=== PATIENT | male | born 1965 | race Caucasian/White ===

== ENCOUNTER 2018-04-26 21:11 | Emergency (ER) | payer OTHER ==
[~2018-04-26] VITALS: Ht 180.3 cm; Wt 95.3 kg
--- NOTE | 2018-04-26 21:32 | NUR ---
pt aaox4, ambulatory, from home c/o itchiness, matilde armpit redness and blisteringfor 2 days, denies cp,sob,tongue swelling. Breathing even unlabored, abd soft nondistended with+BS, denies other symptoms.Bed in low position,locked, HOB up,SR up X2 for safety, CB within reach
--- NOTE | 2018-04-26 21:42 | NUR ---
pt in no distress, advised to f/u with pmd or return to ER for worsening of symptoms,verbalizes understanding
== END 2018-04-26 21:44 | disposition home or self-care (01) ==
LOC: ER 21:13
DX: L74.0 Miliaria rubra (principal)
CPT/HCPCS: 99281; A4663

== ENCOUNTER 2018-09-18 11:34 | Inpatient (IN) | payer MEDICAID, OTHER ==
[~2018-09-18] VITALS: Ht 180.3 cm; Wt 95.3 kg
--- NOTE | 2018-09-18 11:45 | NUR ---
PT IS IN ROOM #1B. DR SAMPSON EVALUATED THE PT.
[2018-09-18] MEDS ORDERED: IBUP-1953 PO (11:49)
[2018-09-18] MEDS ORDERED: DIPH25CA83 PO (11:50)
[2018-09-18 12:11] LABS: BASOPHILS % (AUTO) 0.8 % (0.0-2.0); EOSINOPHILS # (AUTO) 0.1 K/uL (0.0-0.7); EOSINOPHILS % (AUTO) 1.9 % (0.0-7.0); HEMOGLOBIN 15.3 g/dL (12.5-16.3); LYMPHOCYTES # (AUTO) 2.1 K/uL (20.0-40.0); LYMPHOCYTES % (AUTO) 36.3 % (20.5-51.5); MEAN CORPUSCULAR HEMOGLOBIN 32.7 uug (23.8-33.4); MEAN CORPUSCULAR HGB CONC 34 g/dL (32.5-36.3); MEAN CORPUSCULAR VOLUME 95.9 fL (73.0-96.2); MONOCYTES # (AUTO) 0.6 K/uL (2.0-10.0); MONOCYTES % (AUTO) 9.7 % (0.0-11.0); NEUTROPHILS # (AUTO) 2.9 K/uL (1.8-8.9); NEUTROPHILS % (AUTO) 51.3 % (38.5-71.5); PLATELET COUNT (AUTO) 251 K/uL (152-348); RED BLOOD CELL COUNT(AUTO) 4.69 MIL/uL (4.06-5.63); WHITE BLOOD COUNT (AUTO) 5.7 K/uL (3.6-10.2)
[2018-09-18 12:16] LABS: POTASSIUM 3.5 mmol/L (3.5-5.1)
[2018-09-18 12:28] LABS: BILIRUBIN,DIRECT 0.1 mg/dL (0.0-0.2); BILIRUBIN,TOTAL 0.4 mg/dL (0.2-1.0); TOTAL PROTEIN, SERUM 7.2 g/dL (6.4-8.2)
--- NOTE | 2018-09-18 13:20 | NUR ---
TEXTED DR. PEARSON FOR MRI APPROVAL.
--- NOTE | 2018-09-18 13:35 | NUR ---
TABLETIME FOR MRI PATIENTS IS 5PM
--- NOTE | 2018-09-18 15:41 | NUR ---
Brittanie hughes in ED - 09/18/18 at 1543 by FATEMEH PT WAS D/C'd FROM [facility] BY DR SAMPSON. D/C INSTRUCTIONS GIVEN TO THE PT. PT WAS AD[facility]ITED [facility].
--- NOTE | 2018-09-18 15:43 | NUR ---
REPORT WAS GIVEN TO MICA MACHINE OPERATOR. PT WAS TRANSFERED TO ROOM #223.
[2018-09-18] MEDS ORDERED: ASPIRIN 325 MG TABLET PO ONE (15:45)
[2018-09-18] MEDS ORDERED: ASPIRIN 325 MG TABLET ONE (16:13)
[2018-09-18 17:00] VITALS: BP 120/65
[2018-09-18] MEDS ORDERED: hydrALAZINE HCL 20 MG/1 ML VIAL IV PRN (17:00)
--- NOTE | 2018-09-18 17:25 | NUR ---
53 YEAR OLD MALE RECEIVED FROM ER VIA GURNEY FOR TIA IN STABLE CONDITION.V/S ARE STABLE,CALL LIGHT WITH IN REACH
[2018-09-18] MEDS ORDERED: IV NORMAL SALINE 250 ML IV ONE (17:30)
[2018-09-18] MEDS ORDERED: SWABABLE VALVE TRANSFER SET EA MC ONE (17:30)
[2018-09-18] MEDS ORDERED: NORMAL SALINE FLUSH 10 ML DISP.SYRIN ONE (17:30)
[2018-09-18] MEDS ORDERED: IOHEXOL 350 100 ML INFUS..BTL ONE (17:30)
[2018-09-18] MEDS ORDERED: BLOOD SUGAR DIAGNOSTIC 1 EACH STRIP VI SCH (18:00)
[2018-09-18 18:37] LABS: BASOPHILS % (AUTO) 0.6 % (0.0-2.0); EOSINOPHILS # (AUTO) 0.1 K/uL (0.0-0.7); HEMATOCRIT 43.5 % (36.7-47.1); HEMOGLOBIN 14.7 g/dL (12.5-16.3); LYMPHOCYTES % (AUTO) 32.9 % (20.5-51.5); MEAN CORPUSCULAR HEMOGLOBIN 32.3 uug (23.8-33.4); MEAN CORPUSCULAR HGB CONC 34 g/dL (32.5-36.3); MEAN CORPUSCULAR VOLUME 95.9 fL (73.0-96.2); MONOCYTES # (AUTO) 0.6 K/uL (2.0-10.0); MONOCYTES % (AUTO) 10.5 % (0.0-11.0); NEUTROPHILS # (AUTO) 3.3 K/uL (1.8-8.9); PLATELET COUNT (AUTO) 227 K/uL (152-348); RED BLOOD CELL COUNT(AUTO) 4.54 MIL/uL (4.06-5.63); WHITE BLOOD COUNT (AUTO) 6.1 K/uL (3.6-10.2)
[2018-09-18 18:58] LABS: BILIRUBIN,TOTAL 0.3 mg/dL (0.2-1.0); POTASSIUM 3.5 mmol/L (3.5-5.1); TOTAL PROTEIN, SERUM 6.6 g/dL (6.4-8.2)
--- NOTE | 2018-09-18 19:10 | NUR ---
RECEIVED PATIENT AWAKE ON BED, AAOX4, DENIES ANY CHEST PAIN OR SOB AT THIS TIME. ON TELE SINUS RHYTHM WITH HR OF 80. IV SITE ON RAC, PATENT AND INTACT. SAFETY MEASURES INITIATED, PT BELONGINGS AND CALL MONSON WITHIN REACH.
[2018-09-18 19:36] LABS: THYROID STIMULATING HORMONE 2.008 mIU/mL (0.358-3.740)
[2018-09-18 20:00] VITALS: BP 113/71
[2018-09-18] MEDS: ATORVASTATIN 40 MG TABLET PO SCH (20:50)
[2018-09-18] MEDS: BLOOD SUGAR DIAGNOSTIC 1 EACH STRIP VI SCH (20:55)
[2018-09-18] MEDS ORDERED: SIMVASTATIN 40 MG TABLET PO SCH (21:00)
[2018-09-19] VITALS: BP 111/68
[2018-09-19 01:39] LABS: *BILIRUBIN,URIN NEGATIVE (NEGATIVE); *BLOOD, URINE Trace-intact (NEGATIVE); *CLARITY,URINE CLEAR (CLEAR); *COLOR,URINE YELLOW (YELLOW); *KETONES,URINE NEGATIVE (NEGATIVE); *PROTEIN,URINE NEGATIVE (NEGATIVE); *UROBILINOGEN,URINE 0.2 E.U./dl (NORMAL); LEUKOCYTE ESTERASE ,URINE NEGATIVE (NEGATIVE); NITRITE, URINE POSITIVE (NEGATIVE); UGLUCOSE NEGATIVE (NEGATIVE)
[2018-09-19 01:44] LABS: *AMPHETAMINE, URINE NEGATIVE (NEGATIVE); *BARBITURATE, URINE NEGATIVE (NEGATIVE); *CANNABINOID, URINE NEGATIVE (NEGATIVE); *COCCAINE, URINE NEGATIVE (NEGATIVE); *OPIATE, URINE NEGATIVE (NEGATIVE); *PHENCYCLIDINE SCREEN,URINE NEGATIVE (NEGATIVE)
[2018-09-19 02:16] LABS: BACTERIA,URINE FEW /HPF (NONE SEEN); RBC,URINE 0-3 /HPF (0-3); SQUAMOUS EPITHELIAL CELL,UR FEW /HPF (NONE SEEN); WBC,URINE 0-3 /HPF (0-3)
[2018-09-19 04:00] VITALS: BP 108/62
[2018-09-19 05:33] LABS: BASOPHILS # (AUTO) 0.1 K/uL (0.0-8.0); BASOPHILS % (AUTO) 0.9 % (0.0-2.0); EOSINOPHILS # (AUTO) 0.2 K/uL (0.0-0.7); EOSINOPHILS % (AUTO) 2.6 % (0.0-7.0); HEMOGLOBIN 15.4 g/dL (12.5-16.3); LYMPHOCYTES # (AUTO) 2.1 K/uL (20.0-40.0); LYMPHOCYTES % (AUTO) 28.1 % (20.5-51.5); MEAN CORPUSCULAR HEMOGLOBIN 31.9 uug (23.8-33.4); MEAN CORPUSCULAR HGB CONC 34 g/dL (32.5-36.3); MEAN CORPUSCULAR VOLUME 93.5 fL (73.0-96.2); MONOCYTES # (AUTO) 0.7 K/uL (2.0-10.0); MONOCYTES % (AUTO) 9.1 % (0.0-11.0); NEUTROPHILS # (AUTO) 4.5 K/uL (1.8-8.9); NEUTROPHILS % (AUTO) 59.3 % (38.5-71.5); PLATELET COUNT (AUTO) 253 K/uL (152-348); RED BLOOD CELL COUNT(AUTO) 4.81 MIL/uL (4.06-5.63); WHITE BLOOD COUNT (AUTO) 7.7 K/uL (3.6-10.2)
[2018-09-19 05:43] LABS: POTASSIUM 3.8 mmol/L (3.5-5.1)
--- NOTE | 2018-09-19 06:17 | NUR ---
PATIENT SLEPT THROUGHOUT THE SHIFT, NO SIGNS OF DISCOMFORT AT THIS TIME. ON TELE SINUS RHYTHM WITH HR OF 72. IV SITE ON RAC, PATENT AND INTACT. KEPT PATIENT SAFE AND COMFORTABLE AT ALL TIMES, PLACED CALL MONSON WITHIN REACH.
[2018-09-19] MEDS: BLOOD SUGAR DIAGNOSTIC 1 EACH STRIP VI SCH (06:27)
[2018-09-19] MEDS: ASPIRIN 81 MG TAB.CHEW PO SCH (08:03)
[2018-09-19 11:25] VITALS: BP 103/58
[2018-09-19 15:11] VITALS: BP 115/67
[2018-09-19] MEDS ORDERED: IBUPROFEN 400 MG TABLET PO ONE (16:30)
--- NOTE | 2018-09-19 19:10 | NUR ---
RECEIVED PATIENT AWAKE ON BED, AAOX4, DENIES ANY DISCOMFORT AT THIS TIME. SAFETY MEASURE INITIATED, CALL MONSON WITHIN REACH.
[2018-09-19 20:00] VITALS: BP 112/68
[2018-09-19] MEDS: ATORVASTATIN 40 MG TABLET PO SCH (20:29)
--- NOTE | 2018-09-19 21:40 | NUR ---
PATIENT C/O OF SHARP PAIN ON R TEMPORAL AREA. PAIN SCALE OF 5/10. PHONE CALL MADE TO [facility] AND MADE AWARE OF PATIENT'S STATUS. ORDER RECEIVE IBUPROFEN 400MG PO ONCE. ORDERS READ BACK AND CARRIED OUT.
[2018-09-19] MEDS ORDERED: IBUPROFEN 400 MG TABLET PO PRN (22:00)
[2018-09-20 04:00] VITALS: BP 110/61
--- NOTE | 2018-09-20 07:23 | NUR ---
PATIENT SLEPT THROUGHOUT THE SHIFT, NO SIGNS OF ACUTE DISTRESS NOTED AT THIS TIME. IV SITE ON RAC, PATENT AND INTACT. ALL NEED ATTENDED AND MET. SAFE ENVIRONMENT MAINTAINED AT ALL TIMES, PLACED CALL MONSON WITHIN REACH.
[2018-09-20] MEDS: ASPIRIN 81 MG TAB.CHEW PO SCH (08:02)
[2018-09-20 11:03] VITALS: BP 106/58
--- NOTE | 2018-09-20 12:44 | NUR ---
d/c orders received noted and carried out,d/c heplock .d/c instruction amd education and stroke education given to the pt,pt said he will followup with his dr,pt left the facility via private car in stable condition
== END 2018-09-20 12:55 | disposition home or self-care (01) | DRG 45 ==
LOC: ER 11:36 → TELE 16:03 → MED 09-19 09:30
PROVIDERS: ADMIT Internal Medicine; ATTEND Internal Medicine
DX: I63.89 Other cerebral infarction (principal); H53.462 Homonymous bilateral field defects, left side; R40.2412 Glasgow coma scale score 13-15, at arrival to emergency department; R29.700 NIHSS score 0; E78.5 Hyperlipidemia, unspecified; Z91.14 Patient's other noncompliance with medication regimen; Z82.49 Family history of ischemic heart disease and other diseases of the circulatory system; R20.0 Anesthesia of skin; M48.02 Spinal stenosis, cervical region; H05.51 Retained (old) foreign body following penetrating wound of right orbit; Z18.10 Retained metal fragments, unspecified; R51 Headache
CPT/HCPCS: 36415; 70030-TC; 70450; 70496; 71045; 80307; 84443; 85025; 85651; 85730; 86592; 87806; 93005; 93307; 97165; A4663; G0378; J3490; J7050; Q9967

== ENCOUNTER 2019-10-29 13:02 | Emergency (ER) | payer MEDICAID ==
[~2019-10-29] VITALS: Ht 180.3 cm; Wt 95.3 kg
[~2019-10-29 13:02] MED LIST: DIPH25CA83 PO; IBUP-1953 PO
[2019-10-29] MEDS ORDERED: KETOROLAC TROMETHAMINE 15 MG INJ IVP ONE (13:30)
[2019-10-29] MEDS ORDERED: ONDANSETRON 4 MG/2 ML VIAL IV ONE (13:30)
[2019-10-29] MEDS ORDERED: IV NORMAL SALINE 1000 ML BAG IV ONE (13:30)
[2019-10-29] MEDS ORDERED: ONDANSETRON 4 MG/2 ML VIAL ONE (13:38)
[2019-10-29] MEDS ORDERED: KETOROLAC TROMETHAMINE 30 MG INJ ONE (13:38)
[2019-10-29 13:46] LABS: BASOPHILS # (AUTO) 0.1 K/uL (0.0-8.0); BASOPHILS % (AUTO) 0.7 % (0.0-2.0); EOSINOPHILS # (AUTO) 0.1 K/uL (0.0-0.7); EOSINOPHILS % (AUTO) 0.8 % (0.0-7.0); HEMATOCRIT 45.4 % (36.7-47.1); HEMOGLOBIN 15.1 g/dL (12.5-16.3); LYMPHOCYTES # (AUTO) 1.5 K/uL (20.0-40.0); MEAN CORPUSCULAR HGB CONC 33 g/dL (32.5-36.3); MEAN CORPUSCULAR VOLUME 96.3 fL (73.0-96.2); MONOCYTES % (AUTO) 13.8 % (0.0-11.0); NEUTROPHILS # (AUTO) 4.8 K/uL (1.8-8.9); NEUTROPHILS % (AUTO) 64.7 % (38.5-71.5); PLATELET COUNT (AUTO) 188 K/uL (152-348); RED BLOOD CELL COUNT(AUTO) 4.72 MIL/uL (4.06-5.63); WHITE BLOOD COUNT (AUTO) 7.4 K/uL (3.6-10.2)
[2019-10-29 14:16] LABS: BILIRUBIN,DIRECT 0.1 mg/dL (0.0-0.2); BILIRUBIN,TOTAL 0.4 mg/dL (0.2-1.0); POTASSIUM 3.6 mmol/L (3.5-5.1); TOTAL PROTEIN, SERUM 7.4 g/dL (6.4-8.2)
[2019-10-29 15:09] VITALS: BP 134/81
== END 2019-10-29 15:11 | disposition home or self-care (01) ==
LOC: ER 13:04
DX: B34.9 Viral infection, unspecified (principal); R19.7 Diarrhea, unspecified; Z79.1 Long term (current) use of non-steroidal anti-inflammatories (NSAID); Z79.899 Other long term (current) drug therapy
CPT/HCPCS: 36415; 80048; 80076; 83690; 85025; 96361; 96374; 96375; 99283; J1885; J2405; A4663; J7030

== ENCOUNTER 2019-12-17 14:48 | Emergency (ER) | payer MEDICAID ==
[~2019-12-17] VITALS: Ht 180.3 cm; Wt 113.4 kg
--- NOTE | 2019-12-17 15:45 | NUR ---
Patient is resting comfortably on gurney, NAD, respiration:easy, calm, for results & disposition.
--- NOTE | 2019-12-17 16:09 | NUR ---
Patient discharged to home in stable condition with steady gait. Written and verbal after care instructions given to patient in Khmer by MD & HEATHER Hewitt, our clinical nurse educator. Patient verbalized understanding & compliance of instructions.
== END 2019-12-17 16:15 | disposition home or self-care (01) ==
LOC: ER 14:48
DX: J20.9 Acute bronchitis, unspecified (principal); Z60.2 Problems related to living alone
CPT/HCPCS: 36415; 71045; 86403; 87070; 87400; A4663

== ENCOUNTER 2022-09-28 13:45 | Emergency (ER) | payer MEDICAID ==
[~2022-09-28] VITALS: Ht 172.7 cm; Wt 90.7 kg
--- NOTE | 2022-09-28 13:59 | NUR ---
PT IS IN ROOM #2B. DR JOLLY EVALUATED THE PT.
[2022-09-28] MEDS ORDERED: TDAP DIPH,PERTUSS,TET VAC/PF 0.5 ML DISP.SYRIN IM ONE ×2 (14:00→14:06)
[2022-09-28] MEDS ORDERED: LEVO750T46 PO ×2 (14:02→14:16)
[2022-09-28] MEDS ORDERED: CEPH500C2 PO ×2 (14:02→14:16)
[2022-09-28 14:24] VITALS: BP 142/73
--- NOTE | 2022-09-28 14:24 | NUR ---
PT WAS D/C'd TO HOME. D/C INSTRUCTIONS GIVEN TO THE PT BY DR JOLLY.
== END 2022-09-28 14:25 | disposition home or self-care (01) ==
LOC: ER 13:45
DX: S91.332A Puncture wound without foreign body, left foot, initial encounter (principal); W22.8XXA Striking against or struck by other objects, initial encounter; Y92.89 Other specified places as the place of occurrence of the external cause; Z82.49 Family history of ischemic heart disease and other diseases of the circulatory system
CPT/HCPCS: 90715; A4663

== ENCOUNTER 2022-10-26 12:35 | Emergency (ER) | payer MEDICAID ==
[~2022-10-26] VITALS: Ht 172.7 cm; Wt 90.7 kg
[~2022-10-26 12:35] MED LIST changes: +CEPH500C2 PO; -DIPH25CA83 PO; -IBUP-1953 PO; +LEVO750T46 PO
--- NOTE | 2022-10-26 14:10 | NUR ---
DR VILLARREAL AT BEDSIDE FOR EVAL. SWAB SPECIMEN OBTAINED FOR RAPID INFLUENZA AND COVID
--- NOTE | 2022-10-26 14:11 | NUR ---
Received report, pt is covid-19 positive. Isolated the pt and transfered the pt in 5B to 4B.
[2022-10-26] MEDS ORDERED: ACETAMINOPHEN 325 MG TABLET ONE (14:26)
[2022-10-26] MEDS ORDERED: ACETAMINOPHEN 325 MG TABLET PO ONE (14:30)
[2022-10-26] MEDS ORDERED: IV NORMAL SALINE 500 ML BAG IV ONE (14:30)
--- NOTE | 2022-10-26 14:31 | NUR ---
MEDICATED PER MD ORDER. PT WISHES TO OLD OFF ON IV FLUIDS UNTIL TEST RESULTS ARE BACK. MD NOTIFIED.
[2022-10-26 14:42] LABS: HEMATOCRIT 45.3 % (36.7-47.1); MEAN CORPUSCULAR HEMOGLOBIN 31.9 uug (23.8-33.4); MEAN CORPUSCULAR VOLUME 95.5 fL (73.0-96.2); PLATELET COUNT (AUTO) 226 K/uL (152-348)
[2022-10-26 14:52] LABS: POTASSIUM 3.7 mmol/L (3.5-5.1)
[2022-10-26 14:58] LABS: BILIRUBIN,TOTAL 0.3 mg/dL (0.2-1.0); TOTAL PROTEIN, SERUM 7.8 g/dL (6.4-8.2)
--- NOTE | 2022-10-26 16:51 | NUR ---
Patient discharged to home in stable condition. Written and verbal after care instructions given. Patient verbalizes understanding of instructions. Stressed follow up or return to ER for worsening s/s.
[2022-10-26 16:54] VITALS: BP 131/84
== END 2022-10-26 16:50 | disposition home or self-care (01) ==
LOC: ER 12:35
DX: U07.1 COVID-19 (principal); M79.10 Myalgia, unspecified site; Z82.49 Family history of ischemic heart disease and other diseases of the circulatory system; E78.5 Hyperlipidemia, unspecified; Z86.73 Personal history of transient ischemic attack (TIA), and cerebral infarction without residual deficits; I25.9 Chronic ischemic heart disease, unspecified
CPT/HCPCS: 99284; 96360; 87426; 80053; 85025; 87400; 36415; J7040; A4663

== ENCOUNTER 2022-10-28 11:43 | Emergency (ER) | payer MEDICAID ==
[~2022-10-28] VITALS: Ht 180.3 cm; Wt 95.3 kg
--- NOTE | 2022-10-28 12:03 | NUR ---
[email or web address], medical screening exam in progress
--- NOTE | 2022-10-28 12:37 | NUR ---
Patient discharged to home in stable condition with brisk steadu gait. Written and verbal after care instructions given. Patient verbalized understanding and compliance of instructions. Stressed follow up with primary doctor or return to ER for worsening s/s.
== END 2022-10-28 12:37 | disposition home or self-care (01) ==
LOC: ER 11:43
DX: U07.1 COVID-19 (principal); E11.9 Type 2 diabetes mellitus without complications; Z82.49 Family history of ischemic heart disease and other diseases of the circulatory system; E78.5 Hyperlipidemia, unspecified; I25.9 Chronic ischemic heart disease, unspecified; Z86.73 Personal history of transient ischemic attack (TIA), and cerebral infarction without residual deficits; M48.00 Spinal stenosis, site unspecified
CPT/HCPCS: A4663

== ENCOUNTER 2022-12-06 14:44 | Emergency (ER) | payer MEDICAID ==
[~2022-12-06] VITALS: Ht 180.3 cm; Wt 95.3 kg
--- NOTE | 2022-12-06 15:26 | NUR ---
57 years old male walk in to er c/o feeling dizzy with nausea no vomiting, denies cp, sob.
[2022-12-06] MEDS ORDERED: MECLIZINE HCL 25 MG TABLET PO ONE (15:45)
[2022-12-06] MEDS ORDERED: ONDANSETRON 4 MG/2 ML VIAL IV ONE (15:45)
[2022-12-06] MEDS ORDERED: IV NORMAL SALINE 500 ML BAG IV ONE (15:45)
[2022-12-06 15:50] LABS: HEMATOCRIT 45.2 % (36.7-47.1); MEAN CORPUSCULAR HEMOGLOBIN 31.7 uug (23.8-33.4); MEAN CORPUSCULAR VOLUME 95.4 fL (73.0-96.2); PLATELET COUNT (AUTO) 273 K/uL (152-348)
[2022-12-06] MEDS ORDERED: ONDANSETRON 4 MG/2 ML VIAL ONE (15:50)
[2022-12-06] MEDS ORDERED: MECLIZINE HCL 25 MG TABLET ONE (15:50)
[2022-12-06 16:13] LABS: CREATININE 0.7 mg/dL (0.6-1.3); POTASSIUM 3.8 mmol/L (3.5-5.1)
[2022-12-06 16:29] LABS: BILIRUBIN,TOTAL 0.6 mg/dL (0.2-1.0); TOTAL PROTEIN, SERUM 7.5 g/dL (6.4-8.2)
--- NOTE | 2022-12-06 17:10 | NUR ---
patient reassess denies dizziness with ambulation, vss no cp, nausea vomiting d/c home with instructions after care reviewed understood.
[2022-12-06 17:12] VITALS: BP 130/71
== END 2022-12-06 18:14 | disposition home or self-care (01) ==
LOC: ER 14:44
DX: R42 Dizziness and giddiness (principal); E78.5 Hyperlipidemia, unspecified; Z82.49 Family history of ischemic heart disease and other diseases of the circulatory system; Z86.73 Personal history of transient ischemic attack (TIA), and cerebral infarction without residual deficits; E11.9 Type 2 diabetes mellitus without complications
CPT/HCPCS: 99285; 96374; 70450; 96361; 80053; 83880; 85025; 85610; 84484; 36415; 93005; J2405; J7040; A4663; J8597

== ENCOUNTER 2024-08-17 18:20 | Emergency (ER) | payer MEDICAID, OTHER ==
[~2024-08-17] VITALS: Ht 177.8 cm; Wt 94.3 kg
[2024-08-17 19:00] LABS: BASOPHILS % (AUTO) 0.1 % (0.0-2.0); EOSINOPHILS # (AUTO) 0.1 K/uL (0.0-0.7); EOSINOPHILS % (AUTO) 0.5 % (0.0-7.0); HEMATOCRIT 48.9 % (36.7-47.1); HEMOGLOBIN 16.2 g/dL (12.5-16.3); LYMPHOCYTES # (AUTO) 0.5 K/uL (0.8-4.8); LYMPHOCYTES % (AUTO) 4.7 % (20.5-51.5); MEAN CORPUSCULAR HGB CONC 33 g/dL (32.5-36.3); MEAN CORPUSCULAR VOLUME 96.5 fL (73.0-96.2); MONOCYTES # (AUTO) 0.6 K/uL (0.1-1.30); MONOCYTES % (AUTO) 5.1 % (0.0-11.0); NEUTROPHILS % (AUTO) 89.6 % (38.5-71.5); PLATELET COUNT (AUTO) 252 K/uL (152-348); RED BLOOD CELL COUNT(AUTO) 5.07 MIL/uL (4.06-5.63); RED CELL DISTRIBUTION WIDTH 13.9 % (12.1-16.2); WHITE BLOOD COUNT (AUTO) 11.2 K/uL (3.6-10.2)
[2024-08-17] MEDS ORDERED: DICYCLOMINE HCL 20 MG TABLET ONE (19:01)
[2024-08-17] MEDS ORDERED: ACETAMINOPHEN 500 MG TABLET ONE (19:01)
[2024-08-17] MEDS ORDERED: ONDANSETRON HCL 4 MG TABLET ONE (19:02)
[2024-08-17] MEDS: ONDANSETRON HCL 4 MG TABLET PO ONE (19:10)
[2024-08-17] MEDS: DICYCLOMINE HCL 10 MG CAPSULE PO STA (19:10)
[2024-08-17] MEDS: ACETAMINOPHEN 500 MG TABLET PO ONE (19:10)
[2024-08-17 19:14] LABS: ALBUMIN 3.6 g/dL (3.4-5.0); BILIRUBIN,TOTAL 0.5 mg/dL (0.2-1.0); CALCIUM 9.1 mg/dL (8.5-10.1); CREATININE 0.9 mg/dL (0.6-1.3); MAGNESIUM 2.3 mg/dL (1.8-2.4); POTASSIUM 3.9 mmol/L (3.5-5.1); TOTAL PROTEIN, SERUM 7.7 g/dL (6.4-8.2)
[2024-08-17] MEDS ORDERED: DICY10CA13 PO (19:57)
[2024-08-17] MEDS ORDERED: ONDA4TAB5 PO (19:57)
[2024-08-17 20:06] VITALS: BP 132/88; TEMP 98; O2SAT 98
== END 2024-08-17 20:07 | disposition home or self-care (01) ==
LOC: ER 18:20
DX: R10.13 Epigastric pain (principal); B34.9 Viral infection, unspecified; E78.5 Hyperlipidemia, unspecified; E11.9 Type 2 diabetes mellitus without complications; Z86.73 Personal history of transient ischemic attack (TIA), and cerebral infarction without residual deficits; Z20.822 Contact with and (suspected) exposure to COVID-19; Z79.899 Other long term (current) drug therapy
CPT/HCPCS: 36415; 71045; 83690; 83735; 85025; A4606; A4663; A9150; Q0162

== ENCOUNTER 2024-11-01 16:23 | Emergency (ER) | payer OTHER ==
[~2024-11-01] VITALS: Ht 175.3 cm; Wt 95.3 kg
[~2024-11-01 16:23] MED LIST changes: -CEPH500C2 PO; +DICY10CA13 PO; -LEVO750T46 PO; +ONDA4TAB5 PO
[2024-11-01 17:39] LABS: BASOPHILS % (AUTO) 0.6 % (0.0-2.0); EOSINOPHILS # (AUTO) 0.2 K/uL (0.0-0.7); EOSINOPHILS % (AUTO) 2.6 % (0.0-7.0); HEMOGLOBIN 14.7 g/dL (12.5-16.3); LYMPHOCYTES # (AUTO) 1.9 K/uL (0.8-4.8); LYMPHOCYTES % (AUTO) 30.5 % (20.5-51.5); MEAN CORPUSCULAR HEMOGLOBIN 32.3 uug (23.8-33.4); MEAN CORPUSCULAR HGB CONC 34 g/dL (32.5-36.3); MEAN CORPUSCULAR VOLUME 96.5 fL (73.0-96.2); MONOCYTES # (AUTO) 0.6 K/uL (0.1-1.30); NEUTROPHILS # (AUTO) 3.6 K/uL (1.8-8.9); NEUTROPHILS % (AUTO) 57.3 % (38.5-71.5); PLATELET COUNT (AUTO) 241 K/uL (152-348); RED BLOOD CELL COUNT(AUTO) 4.56 MIL/uL (4.06-5.63); RED CELL DISTRIBUTION WIDTH 13.7 % (12.1-16.2); WHITE BLOOD COUNT (AUTO) 6.2 K/uL (3.6-10.2)
[2024-11-01 17:50] LABS: CALCIUM 8.4 mg/dL (8.5-10.1); CREATININE 0.7 mg/dL (0.6-1.3); POTASSIUM 3.9 mmol/L (3.5-5.1)
[2024-11-01 18:00] LABS: DIFFERENTIAL COMMENT 1
[2024-11-01 18:21] LABS: ALBUMIN 3.4 g/dL (3.4-5.0); BILIRUBIN,TOTAL 0.2 mg/dL (0.2-1.0); TOTAL PROTEIN, SERUM 7.3 g/dL (6.4-8.2)
[2024-11-01 18:28] LABS: ERYTHROCYTE SEDIMENTATION RATE 12 MM/HR (0-15)
[2024-11-01 18:46] LABS: *BILIRUBIN,URIN NEGATIVE (NEGATIVE); *BLOOD, URINE NEGATIVE (NEGATIVE); *CLARITY,URINE CLEAR (CLEAR); *COLOR,URINE YELLOW (YELLOW); *KETONES,URINE NEGATIVE (NEGATIVE); *PROTEIN,URINE NEGATIVE (NEGATIVE); *UROBILINOGEN,URINE 0.2 E.U./dl (NORMAL); LEUKOCYTE ESTERASE ,URINE NEGATIVE (NEGATIVE); NITRITE, URINE NEGATIVE (NEGATIVE); PH,URINE 6.5 (5.0-8.0); UGLUCOSE NEGATIVE (NEGATIVE)
[2024-11-01] MEDS ORDERED: CYANOCOBALAMIN 1000 MCG/ML VIAL ONE (18:50)
[2024-11-01] MEDS: CYANOCOBALAMIN 1000 MCG/ML VIAL IM ONE (19:01)
[2024-11-01 19:11] VITALS: BP 120/78; O2SAT 99
== END 2024-11-01 19:12 | disposition home or self-care (01) ==
LOC: ER 16:23
DX: E53.8 Deficiency of other specified B group vitamins (principal); R51.9 Headache, unspecified; E83.51 Hypocalcemia; R20.0 Anesthesia of skin; M54.2 Cervicalgia; Z60.2 Problems related to living alone
CPT/HCPCS: 99285; 70450; 80053; 81003; 82607; 83036; 83735; 85025; 85651; 36415; 96372; J3420; A4606; A4663

== ENCOUNTER 2025-01-04 17:31 | Emergency (ER) | payer OTHER ==
[~2025-01-04] VITALS: Ht 175.3 cm; Wt 95.3 kg
[2025-01-04] MEDS ORDERED: SYRI-29 MC (18:28)
[2025-01-04] MEDS ORDERED: [UNRECOGNIZED DRUG - CODE] IM (18:28)
[2025-01-04] MEDS: CYANOCOBALAMIN 1000 MCG/ML VIAL IM ONE (18:30)
[2025-01-04] MEDS ORDERED: CYANOCOBALAMIN 1000 MCG/ML VIAL ONE (18:34)
[2025-01-04 19:00] VITALS: BP 122/71; TEMP 97.9; O2SAT 98
== END 2025-01-04 19:00 | disposition home or self-care (01) ==
LOC: ER 17:36
DX: S46.912A Strain of unspecified muscle, fascia and tendon at shoulder and upper arm level, left arm, initial encounter (principal); S46.911A Strain of unspecified muscle, fascia and tendon at shoulder and upper arm level, right arm, initial encounter; X58.XXXA Exposure to other specified factors, initial encounter; M25.562 Pain in left knee; E53.8 Deficiency of other specified B group vitamins; Z60.2 Problems related to living alone; Y93.B9 Activity, other involving muscle strengthening exercises; Y92.89 Other specified places as the place of occurrence of the external cause; Y99.8 Other external cause status
CPT/HCPCS: 99283; 96372; J3420; A4606; A4663